=== PATIENT | male | born 1950 | race Caucasian/White ===

== ENCOUNTER 2017-08-27 10:01 | Outpatient (CLI) | payer MEDICARE ==
--- NOTE | 2017-08-27 12:16 | RAD ---
CHEST 1 VIEWS: HISTORY: Cough x many months. COMPARISON: None. FINDINGS: Normal cardiac silhouette. The pulmonary vessels and hilum are normal. Costophrenic angles are logan r. No masses or consolidation. No pneumothorax or osseous abnormalities. Minimal bilateral apical pleural thickening. IMPRESSION: No acute cardiopulmonary process. POS: [facility]
== END 2017-08-27 10:02 | disposition home or self-care (01) ==
LOC: SCSRAD 10:01
PROVIDERS: ATTEND Nurse Practitioner Family
DX: J40 Bronchitis, not specified as acute or chronic (principal)
CPT/HCPCS: 71046

== ENCOUNTER 2018-06-28 06:07 | Outpatient (CLI) | payer MEDICARE ==
[2018-06-28 10:31] LABS: #Basophils 0.1 thou/uL (0.0-0.2); #Eosinphils 0.1 thou/uL (0.0-0.7); #Lymphocytes 2.5 thou/uL (1.20-3.40); #Monocytes 0.6 thou/uL (0.11-0.59); #Neutrophils 3.5 thou/uL (1.40-6.50); %Basophils 1.7 % (0.0-1.0); %Eosinophils 1.6 % (0.0-10.0); %Lymphocytes 37.1 % (21.0-51.0); %Monocytes 8.7 % (0.0-10.0); Mean Corpuscular HGB CONC 32.6 g/dL (32.0-36.0); Mean Corpuscular Volume 89.2 fL (78.0-98.0); Mean Platelet Volume 6.8 fL (7.4-10.4); Platelet Count 300 thou/uL (130-400); RBC Distribution Width 11.5 % (11.5-14.5); Red Blood Cell (RBC) Count 5.17 mill/uL (4.70-6.10); White Blood Cell (WBC) Count 6.8 thou/uL (4.8-10.8)
[2018-06-28 10:50] LABS: ALT (SGPT) 27 U/L (8-55); AST (SGOT) 18 U/L (5-34); Albumin 4.3 g/dL (3.4-4.8); Alkaline Phosphatase 83 U/L (40-150); Anion Gap 14 mmol/L (10-20); BUN (Urea Nitrogen) 10 mg/dL (8.4-25.7); Bilirubin, Total 0.4 mg/dL (0.2-1.2); Calc. Creatinine Clearance 0 mL/min (70-130); Calcium 9.5 mg/dL (7.8-10.44); Carbon Dioxide 24 mmol/L (23-31); Chloride 105 mmol/L (98-107); Estimated GFR-MDRD Greater than 90; Globulin 3.2 g/dL (2.4-3.5); Glucose 107 mg/dL (80-115); Protein, Total 7.5 g/dL (5.8-8.1); Sodium 139 mmol/L (136-145)
== END 2018-06-28 06:08 | disposition home or self-care (01) ==
LOC: LABBT 06:07
PROVIDERS: ATTEND Internal Medicine Cardiovascular Disease
DX: Z01.812 Encounter for preprocedural laboratory examination (principal); R07.9 Chest pain, unspecified
CPT/HCPCS: 80053; 85025

== ENCOUNTER 2018-07-04 05:40 | Day surgery (SDC) | payer MEDICARE ==
[2018-06-28 09:35] VITALS: BMI 25.1
[2018-07-04] MEDS ORDERED: Diazepam 5 MG TAB ONE (06:28)
[2018-07-04] MEDS ORDERED: Midazolam HCl 2 mg/2 ml Vial ONE (06:32)
[2018-07-04] MEDS ORDERED: Fentanyl 100 MCG/2 ML VIAL ONE (06:32)
[2018-07-04] MEDS ORDERED: Iopamidol 370 76% 100 ML VIAL ONE (09:07)
== END 2018-07-04 13:44 | disposition home or self-care (01) ==
LOC: CCL 05:40
PROVIDERS: ATTEND Internal Medicine Cardiovascular Disease
PROC: 4A023N7 Measurement of Cardiac Sampling and Pressure, Left Heart, Percutaneous Approach (ICD-10-PCS; principal; 2018-07-04)
PROC: B2111ZZ Fluoroscopy of Multiple Coronary Arteries using Low Osmolar Contrast (ICD-10-PCS; 2018-07-04)
DX: I25.10 Atherosclerotic heart disease of native coronary artery without angina pectoris (principal); R07.9 Chest pain, unspecified; E78.2 Mixed hyperlipidemia; I73.9 Peripheral vascular disease, unspecified; Z87.891 Personal history of nicotine dependence; Z79.82 Long term (current) use of aspirin; Z79.899 Other long term (current) drug therapy
CPT/HCPCS: 76942; 93458; 99152; C1769; J1644; J2250; J3010; Q9967

== ENCOUNTER 2018-07-09 14:17 | Outpatient (CLI) | payer MEDICARE | END 2018-07-09 14:18 | disposition home or self-care (01) | LOC: LABBT 14:17 | PROVIDERS: ATTEND Thoracic Surgery (Cardiothoracic Vascular Surgery) | DX: Z01.812 Encounter for preprocedural laboratory examination (principal); I25.10 Atherosclerotic heart disease of native coronary artery without angina pectoris | CPT/HCPCS: 80048; 85025; 86850; 86900; 86901 ==

== ENCOUNTER 2018-07-09 14:30 | Inpatient (IN) | payer MEDICARE ==
[2018-07-09 15:24] LABS: #Basophils 0.1 thou/uL (0.0-0.2); #Eosinphils 0.2 thou/uL (0.0-0.7); #Lymphocytes 3.1 thou/uL (1.20-3.40); #Neutrophils 6.6 thou/uL (1.40-6.50); %Basophils 0.9 % (0.0-1.0); %Eosinophils 1.7 % (0.0-10.0); %Lymphocytes 28.1 % (21.0-51.0); %Monocytes 9.4 % (0.0-10.0); %Neutrophils 59.9 % (42.0-75.0); Hemoglobin 15.2 g/dL (14.0-18.0); Mean Corpuscular HGB CONC 33.3 g/dL (32.0-36.0); Mean Corpuscular Volume 90.1 fL (78.0-98.0); Mean Platelet Volume 6.7 fL (7.4-10.4); Platelet Count 293 thou/uL (130-400); RBC Distribution Width 11.5 % (11.5-14.5); Red Blood Cell (RBC) Count 5.08 mill/uL (4.70-6.10); White Blood Cell (WBC) Count 11.1 thou/uL (4.8-10.8)
[2018-07-09 15:42] LABS: Anion Gap 13 mmol/L (10-20); BUN (Urea Nitrogen) 17 mg/dL (8.4-25.7); Calc. Creatinine Clearance 0 mL/min (70-130); Calcium 9.5 mg/dL (7.8-10.44); Carbon Dioxide 23 mmol/L (23-31); Chloride 108 mmol/L (98-107); Estimated GFR-MDRD Greater than 90; Glucose 95 mg/dL (80-115); Potassium 4.3 mmol/L (3.5-5.1); Sodium 140 mmol/L (136-145)
[2018-07-10] MEDS ORDERED: Albumin 5% 0 ML ONE (06:59)
[2018-07-10] MEDS ORDERED: Albumin 5% 500 ML ONE (07:00)
[2018-07-10] MEDS ORDERED: CEFAZOLIN 2 GM/50 ML BAG ONE (08:20)
[2018-07-10] MEDS ORDERED: Sodium Bicarb 50 MEQ/50 ML VIAL ONE (10:38)
[2018-07-10] MEDS ORDERED: Cardioplegic Soln 1,000 ML BAG ONE (10:38)
[2018-07-10] MEDS ORDERED: Potassium Chloride 60 MEQ/30 ML VIAL ONE (10:38)
[2018-07-10] MEDS ORDERED: Dexamethasone 20 MG/5 ML VIAL ONE (10:38)
[2018-07-10] MEDS ORDERED: Vecuronium 10 MG VIAL ONE ×2 (10:38→11:43)
[2018-07-10] MEDS ORDERED: Mannitol 12.5 GM/50 ML ONE (10:38)
[2018-07-10] MEDS ORDERED: Heparin 30,000 units/30 ml VIAL ONE (10:38)
[2018-07-10] MEDS ORDERED: Calcium Chloride 1 GM/10 ML Abboject SYRINGE ONE (10:38)
[2018-07-10] MEDS ORDERED: Magnesium 5 GM/10 ML VIAL ONE (10:38)
[2018-07-10] MEDS ORDERED: Nitroglycerin 50 MG/250 ML BOT ONE (10:38)
[2018-07-10] MEDS ORDERED: Protamine Sulfate 250 MG/25 ML VIAL ONE (10:38)
[2018-07-10] MEDS ORDERED: Thrombin 5000 UNITS/5 ML VIAL ONE (10:38)
[2018-07-10] MEDS ORDERED: Albumin 25% 25 GM/100 ML BOT ONE (10:38)
[2018-07-10] MEDS ORDERED: Aminocaproic Acid 5 GM/20 ML VIAL ONE (10:38)
[2018-07-10] MEDS ORDERED: ePHEDrine/0.9% NaCl/PF SYRINGE 50 mg/10 ml ONE (10:38)
[2018-07-10] MEDS ORDERED: Heparin 5,000 UNITS/ML VIAL ONE (10:38)
[2018-07-10] MEDS ORDERED: PHENYLEPHRINE-NS 100 MCG/ML 10 ML SYRINGE ONE (10:38)
[2018-07-10] MEDS ORDERED: Glycopyrrolate 0.2 MG/ML 5 ML SYRINGE ONE (10:38)
[2018-07-10] MEDS ORDERED: Ketorolac Tromethamine 30 MG/ML VIAL ONE (10:38)
[2018-07-10] MEDS ORDERED: Papaverine 60 MG/2 ML VIAL ONE (10:38)
[2018-07-10] MEDS ORDERED: Ondansetron PF 4 MG/2 ML Vial ONE (10:38)
[2018-07-10] MEDS ORDERED: Fentanyl 100 MCG/2 ML VIAL ONE (11:43)
[2018-07-10] MEDS ORDERED: Dexmedetomidine 200 MCG/2 ML VIAL ONE (11:43)
[2018-07-10] MEDS ORDERED: Midazolam HCl 5 mg/5 ml Vial ONE (11:43)
[2018-07-10] MEDS ORDERED: Midazolam HCl 2 mg/2 ml Vial ONE (11:43)
[2018-07-10] MEDS ORDERED: Heparin 10,000 UNITS/1 ML VIAL 30,000 UNITS in Sodium Chloride 0.9% 1,000 ML IVPB SCH (12:45)
[2018-07-10] MEDS ORDERED: Nitroglycerin 50 MG/250 ML BOT 250 ML IVPB PRN (16:30)
[2018-07-10] MEDS ORDERED: Ondansetron PF 4 MG/2 ML Vial IVP PRN (16:30)
[2018-07-10] MEDS ORDERED: Hetastarch 6% 500 ML 500 ML IVPB PRN (16:30)
[2018-07-10] MEDS ORDERED: Magnesium 2 GM/50 ML 2 GM in Premix Bag 1 BAG IVPB SCH (16:30)
[2018-07-10] MEDS ORDERED: Post-Op Insulin Drip Protocol IVPB ONE (16:30)
[2018-07-10] MEDS ORDERED: Fentanyl 100 MCG/2 ML VIAL SLOW IVP PRN ×2 (16:30)
[2018-07-10] MEDS ORDERED: DOPamine 400 MG/D5W 250 ML 250 ML IVPB PRN (16:30)
[2018-07-10] MEDS ORDERED: Bisacodyl 5 MG TAB PO PRN (16:30)
[2018-07-10] MEDS ORDERED: Bisacodyl 10 MG SUPP PR PRN (16:30)
[2018-07-10] MEDS ORDERED: Potassium Chloride 20 MEQ/100 ML PREMIX BAG IVPB PRN (16:30)
[2018-07-10] MEDS ORDERED: Magnesium 2 GM/NS 0.9% 100 ML 2 GM in Premix Bag 1 BAG IVPB SCH (16:30)
[2018-07-10] MEDS ORDERED: Acetaminophen 325 MG TAB PO PRN (16:30)
[2018-07-10] MEDS ORDERED: Norepinephrine 8 MG/0.9% NS 250 ML IVPB PRN (16:30)
[2018-07-10] MEDS ORDERED: hydrALAZINE 20 MG/ML VIAL SLOW IVP PRN (16:30)
[2018-07-10] MEDS ORDERED: Guaifenesin DM 100-10/5 ML UDCUP PO PRN (16:30)
[2018-07-10] MEDS ORDERED: Mag-Al 1200 mg/1200 mg/30 ML UDCUP PO PRN (16:30)
[2018-07-10] MEDS ORDERED: Morphine 2 MG/ML SYRINGE SLOW IVP PRN (16:39)
[2018-07-10] MEDS ORDERED: Dextrose 50% Abboject 50 ML SYRINGE SLOW IVP PRN (16:47)
[2018-07-10] MEDS ORDERED: HUMULIN R 100 UNITS in Sodium Chloride 0.9% 100 ML IVPB SCH (16:47)
[2018-07-10] MEDS ORDERED: Dextrose 5% in Water 1,000 ML IV PRN (16:47)
[2018-07-10] MEDS ORDERED: Insulin Regular 300 UNITS/3 ML VIAL SC PRN (16:47)
[2018-07-10 17:08] LABS: Actual Bicarbonate (HCO3a) 19.7 mEq/L (22-28); Base Excess (BEa) -4.1 mEq/L (-2.0 to +3.0); CO2 Tension 32.3 mmHg (35.0-45.0); Calcium, Ionized 1.18 mmol/L (1.12-1.30); Carboxyhemoglobin (COHb) 0.7 gm% (0.0-3.0); Hemoglobin (Hb) 11.8 g/dL (14.0-18.0); O2 Tension (PaO2) 94.4 mmHg (> 80.0); Potassium - ABG Lab 4.37 mmol/L (3.70-5.30)
[2018-07-10 17:09] LABS: #Basophils 0.1 thou/uL (0.0-0.2); #Eosinphils 0.1 thou/uL (0.0-0.7); #Lymphocytes 1.3 thou/uL (1.20-3.40); #Monocytes 0.7 thou/uL (0.11-0.59); #Neutrophils 11.6 thou/uL (1.40-6.50); %Basophils 0.5 % (0.0-1.0); %Eosinophils 0.5 % (0.0-10.0); %Lymphocytes 9.5 % (21.0-51.0); %Monocytes 5.1 % (0.0-10.0); %Neutrophils 84.4 % (42.0-75.0); Hemoglobin 12.8 g/dL (14.0-18.0); Mean Corpuscular HGB CONC 33.4 g/dL (32.0-36.0); Mean Corpuscular Hemoglobin 30.4 pg (27.0-31.0); Mean Corpuscular Volume 90.9 fL (78.0-98.0); Mean Platelet Volume 6.7 fL (7.4-10.4); Platelet Count 212 thou/uL (130-400); RBC Distribution Width 11.5 % (11.5-14.5); White Blood Cell (WBC) Count 13.7 thou/uL (4.8-10.8)
[2018-07-10 17:10] LABS: ALV-art Gradient 221.725 (0-20); Puncture Site ALINE
[2018-07-10 17:16] LABS: INR-International Normal Ratio 1.3; PTT 29.4 SEC (22.9-36.1); Prothrombin Time 16.1 SEC (12.0-14.7)
[2018-07-10 17:33] LABS: Anion Gap 15 mmol/L (10-20); BUN (Urea Nitrogen) 13 mg/dL (8.4-25.7); Calc. Creatinine Clearance 108 mL/min (70-130); Calcium 9.1 mg/dL (7.8-10.44); Carbon Dioxide 19 mmol/L (23-31); Chloride 109 mmol/L (98-107); Estimated GFR-MDRD Greater than 90; Glucose 159 mg/dL (80-115); Potassium 4.6 mmol/L (3.5-5.1); Sodium 138 mmol/L (136-145)
[2018-07-10] MEDS: Sodium Chloride 0.9% 1,000 ML IV SCH (17:49)
[2018-07-10] MEDS: CEFAZOLIN 2 GM/50 ML-DEXTROSE 2 GM in Premix Bag 1 BAG IVPB SCH (17:49)
[2018-07-10] MEDS: Ketorolac Tromethamine 30 MG/ML VIAL IVP SCH (17:49)
[2018-07-10] MEDS ORDERED: CEFAZOLIN/Water 2 GM/20 ML SYRINGE SLOW IVP SCH (18:00)
--- NOTE | 2018-07-10 18:50 | RAD ---
RADIOGRAPH CHEST 1 VIEW: Date: 07/10/18 Time: 3:59 p.m. HISTORY: 68-year-old male status post open heart surgery. COMPARISON: 08/27/17. FINDINGS: All of the following are new since the prior study: Sternotomy wires, right subclavian central vascular catheter with distal tip overlying the SVC/right atrial junction, two left paramedial vertically ascending chest tubes, and mildly increased attenuati on at the left lung base. No pulmonary edema. No pneumothorax identified. IMPRESSION: 1. Status post coronary artery bypass graft surgery. 2. Mild atelectasis at left lower lobe. 3. Paramedian chest tubes and right subclavian central line. MARIELY [] POS: [facility]
[2018-07-10] MEDS: HYDROcodone/Acetaminophen 5/325 mg Tablet PO PRN (19:24)
[2018-07-10] MEDS: Atorvastatin Calcium 20 MG TAB PO SCH (20:08)
[2018-07-10] MEDS: Famotidine/PF 20 mg/2ml Vial SLOW IVP SCH (20:08)
[2018-07-10 22:45] LABS: Hemoglobin 12.7 g/dL (14.0-18.0)
[2018-07-11] MEDS: Ketorolac Tromethamine 30 MG/ML VIAL IVP SCH ×4 (00:02→18:25)
[2018-07-11] MEDS: CEFAZOLIN 2 GM/50 ML-DEXTROSE 2 GM in Premix Bag 1 BAG IVPB SCH ×2 (02:13→10:38)
[2018-07-11] MEDS: HYDROcodone/Acetaminophen 5/325 mg Tablet PO PRN ×3 (02:19→19:46)
[2018-07-11 04:48] LABS: #Lymphocytes 1.2 thou/uL (1.20-3.40); #Monocytes 1.2 thou/uL (0.11-0.59); #Neutrophils 8.7 thou/uL (1.40-6.50); %Basophils 0.1 % (0.0-1.0); %Eosinophils 0.1 % (0.0-10.0); %Monocytes 10.4 % (0.0-10.0); %Neutrophils 78.4 % (42.0-75.0); Hemoglobin 10.5 g/dL (14.0-18.0); Mean Corpuscular HGB CONC 33.7 g/dL (32.0-36.0); Mean Corpuscular Hemoglobin 30.9 pg (27.0-31.0); Mean Corpuscular Volume 91.7 fL (78.0-98.0); Platelet Count 212 thou/uL (130-400); RBC Distribution Width 11.4 % (11.5-14.5); Red Blood Cell (RBC) Count 3.41 mill/uL (4.70-6.10); White Blood Cell (WBC) Count 11.1 thou/uL (4.8-10.8)
[2018-07-11 05:13] LABS: Anion Gap 12 mmol/L (10-20); BUN (Urea Nitrogen) 14 mg/dL (8.4-25.7); Calc. Creatinine Clearance 114 mL/min (70-130); Calcium 7.9 mg/dL (7.8-10.44); Carbon Dioxide 20 mmol/L (23-31); Chloride 108 mmol/L (98-107); Estimated GFR-MDRD Greater than 90; Glucose 133 mg/dL (80-115); Potassium 3.8 mmol/L (3.5-5.1); Sodium 136 mmol/L (136-145)
[2018-07-11 06:27] VITALS: BMI 26.2
[2018-07-11] MEDS: Sodium Chloride 0.9% 1,000 ML IV SCH ×2 (07:21→10:53)
[2018-07-11] MEDS: Famotidine/PF 20 mg/2ml Vial SLOW IVP SCH ×2 (07:56→20:50)
[2018-07-11] MEDS ORDERED: Aspirin 325 MG TAB PO SCH (09:00)
--- NOTE | 2018-07-11 09:03 | RAD ---
CHEST 1 VIEW: HISTORY: Status post open heart surgery. COMPARISON: 07/10/2018. FINDINGS: Chest tubes and right central line. Minimal pleural and parenchymal opacity changes in the bases, so mewhat more so on the left side, probably postoperative change with some subsegmental atelectasis. N o significant pneumothorax. IMPRESSION: Pleural and parenchymal changes in both bases more so on the left side probably postoperative change. No significant pneumothorax. Continue short-term followup. POS: [facility]
--- NOTE | 2018-07-11 10:39 | OP ---
DATE OF PROCEDURE: 07/10/2018 PREOPERATIVE DIAGNOSIS: Coronary artery disease. PROCEDURES PERFORMED: Coronary artery bypass graft x4, left internal mammary artery good quality to a 1.25 mm to 1.5 mm LAD, saphenous vein good quality to a 1.25 mm acute marginal, 1.25 mm proximal right PDA, and a 1.5 mm distal obtuse marginal. All targets were rather small and not reoperative candidate based on these targets. The vein was good quality. OCC MED PHYSICIAN: Kobe Shaikh MD. TRANSFUSION: None. DESCRIPTION OF PROCEDURE: After adequate anesthesia had been obtained, the patient was prepped and draped. An endovascular vein harvest of the right leg was performed while median sternotomy was done. Left internal mammary artery was harvested. Common mammary divided after heparinization, treated with intraluminal papaverine and passed behind a small remnant of thymus gland. Aorta and right atrium were cannulated and cardiopulmonary bypass was begun. The vessels were inspected for grafting. A liter of cold blood cardioplegia was given through the aortic root after cross-clamping. Distal anastomosis completed. Long period of time was spent with the right coronary system, trying to find a suitable target as the posterior lateral branches were too small for the main right coronary artery and the proximal posterior lateral to calcify and the PDA was chosen, although was marginal in size. Following completion of the distal anastomosis, the cross-clamp was removed and the partial occluding clamp placed in the obtuse marginal and PDA. Vein grafts were placed on the aortic root. A partial occluding clamp was removed and vein grafts were marked with rings on the aorta. The acute marginal graft was anastomosed to the vein graft to the PDA about 2.5 cm from the aortic root. The patient was then weaned from cardiopulmonary bypass after inspection of proximal and distal anastomosis. Cannula was removed and protamine was given systemically and the aortic cannulation site was secured with a 4-0 Prolene suture. Following this, mediastinal and left pleural drains were placed and the sternum was then reapproximated with #7 interrupted wire using vancomycin paste on the sternal edges, platelet rich blood and platelet poor plasma. Subcutaneous tissue and skin were closed in layers. Job ID: [id number]
--- NOTE | 2018-07-11 13:16 | EKG ---
Test Reason : Blood Pressure : / mmHG Vent. Rate : 080 BPM Atrial Rate : 080 BPM P-R Int : 154 ms QRS Dur : 090 ms QT Int : 386 ms P-R-T Axes : 063 021 052 degrees QTc Int : 445 ms Normal sinus rhythm Nonspecific ST abnormality Abnormal ECG No previous ECGs available Confirmed by DR. Joleen BANUELOS MD ([id number]) on 07/11/2018 1:16:31 PM Referred By: PETEY Confirmed By:DR. Joleen BANUELOS MD
[2018-07-11 14:42] LABS: Actual Bicarbonate (HCO3a) 23.7 mEq/L (22-28); Analyzer IN Cardio OR; Base Excess (BEa) -0.5 mEq/L (-2.0 to +3.0); CO2 Tension 37.5 mmHg (35.0-45.0); Calcium, Ionized 1.11 mmol/L (1.12-1.30); Carboxyhemoglobin (COHb) 0.6 gm% (0.0-3.0); Hemoglobin (Hb) 14.2 g/dL (14.0-18.0); Potassium - ABG Lab 4.08 mmol/L (3.70-5.30); pH, Arterial 7.42 (7.35-7.45)
[2018-07-11 14:43] LABS: Analyzer IN Cardio OR; Base Excess (BEa) -1.6 mEq/L (-2.0 to +3.0); CO2 Tension 38.3 mmHg (35.0-45.0); Calcium, Ionized 0.97 mmol/L (1.12-1.30); Carboxyhemoglobin (COHb) 0.3 gm% (0.0-3.0); Potassium - ABG Lab 4.79 mmol/L (3.70-5.30)
[2018-07-11 14:43] LABS: Actual Bicarbonate (HCO3a) 23.2 mEq/L (22-28); Analyzer IN Cardio OR; Base Excess (BEa) -2.6 mEq/L (-2.0 to +3.0); CO2 Tension 44.1 mmHg (35.0-45.0); Calcium, Ionized 1.27 mmol/L (1.12-1.30); Carboxyhemoglobin (COHb) 0.5 gm% (0.0-3.0); Hemoglobin (Hb) 11.1 g/dL (14.0-18.0); Potassium - ABG Lab 4.88 mmol/L (3.70-5.30); pH, Arterial 7.34 (7.35-7.45)
[2018-07-11 14:43] LABS: Actual Bicarbonate (HCO3a) 21.5 mEq/L (22-28); Analyzer IN Cardio OR; Base Excess (BEa) -3.8 mEq/L (-2.0 to +3.0); CO2 Tension 39.9 mmHg (35.0-45.0); Calcium, Ionized 1.07 mmol/L (1.12-1.30); Carboxyhemoglobin (COHb) 0.4 gm% (0.0-3.0); Hemoglobin (Hb) 13.3 g/dL (14.0-18.0); O2 Tension (PaO2) 271.6 mmHg (> 80.0); Potassium - ABG Lab 4.12 mmol/L (3.70-5.30); pH, Arterial 7.35 (7.35-7.45)
[2018-07-11 14:44] LABS: Actual Bicarbonate (HCO3a) 18.5 mEq/L (22-28); Analyzer IN Cardio OR; Base Excess (BEa) -5.9 mEq/L (-2.0 to +3.0); CO2 Tension 33.1 mmHg (35.0-45.0); Calcium, Ionized 1.23 mmol/L (1.12-1.30); Carboxyhemoglobin (COHb) 0.6 gm% (0.0-3.0); Hemoglobin (Hb) 12.4 g/dL (14.0-18.0); O2 Tension (PaO2) 393.5 mmHg (> 80.0); Puncture Site ALINE; pH, Arterial 7.37 (7.35-7.45)
[2018-07-11 14:45] LABS: Puncture Site ALINE
[2018-07-11 14:46] LABS: O2 Tension (PaO2) 517.4 mmHg (> 80.0); Puncture Site ALINE
[2018-07-11 14:47] LABS: Puncture Site ALINE
[2018-07-11 14:47] LABS: Puncture Site ALINE
[2018-07-11] MEDS: BEER 1 CAN PO SCH (18:22)
[2018-07-11] MEDS: Atorvastatin Calcium 20 MG TAB PO SCH (20:51)
[2018-07-11] MEDS ORDERED: Metoprolol Tartrate 25 MG TAB PO SCH (21:00)
[2018-07-12] MEDS: Ketorolac Tromethamine 30 MG/ML VIAL IVP SCH ×2 (00:09→05:05)
[2018-07-12] MEDS: HYDROcodone/Acetaminophen 5/325 mg Tablet PO PRN ×3 (05:04→18:21)
[2018-07-12 05:09] LABS: #Basophils 0.1 thou/uL (0.0-0.2); #Lymphocytes 2.1 thou/uL (1.20-3.40); #Monocytes 1.3 thou/uL (0.11-0.59); #Neutrophils 6.2 thou/uL (1.40-6.50); %Basophils 0.6 % (0.0-1.0); %Eosinophils 0.3 % (0.0-10.0); %Monocytes 13.2 % (0.0-10.0); %Neutrophils 63.9 % (42.0-75.0); Hemoglobin 10.1 g/dL (14.0-18.0); Mean Corpuscular HGB CONC 33.1 g/dL (32.0-36.0); Mean Corpuscular Hemoglobin 30.6 pg (27.0-31.0); Mean Corpuscular Volume 92.4 fL (78.0-98.0); Mean Platelet Volume 6.8 fL (7.4-10.4); Platelet Count 170 thou/uL (130-400); RBC Distribution Width 11.5 % (11.5-14.5); Red Blood Cell (RBC) Count 3.32 mill/uL (4.70-6.10); White Blood Cell (WBC) Count 9.7 thou/uL (4.8-10.8)
[2018-07-12 05:23] LABS: Anion Gap 9 mmol/L (10-20); BUN (Urea Nitrogen) 12 mg/dL (8.4-25.7); Calc. Creatinine Clearance 120 mL/min (70-130); Calcium 8.4 mg/dL (7.8-10.44); Carbon Dioxide 25 mmol/L (23-31); Chloride 107 mmol/L (98-107); Estimated GFR-MDRD Greater than 90; Glucose 109 mg/dL (80-115); Potassium 4.2 mmol/L (3.5-5.1); Sodium 137 mmol/L (136-145)
[2018-07-12] MEDS ORDERED: Fentanyl 100 MCG/2 ML VIAL SLOW IVP PRN (07:45)
[2018-07-12] MEDS ORDERED: Bisacodyl 10 MG SUPP PR PRN (07:45)
[2018-07-12] MEDS ORDERED: Ondansetron PF 4 MG/2 ML Vial IVP PRN (07:45)
[2018-07-12] MEDS ORDERED: Mineral Oil ENEMA PR PRN (07:45)
[2018-07-12] MEDS ORDERED: Guaifenesin DM 100-10/5 ML UDCUP PO PRN (07:45)
[2018-07-12] MEDS ORDERED: Nitroglycerin 0.4 MG TAB (25 Tab Bottle) SL PRN (07:45)
[2018-07-12] MEDS ORDERED: Mag-Al 1200 mg/1200 mg/30 ML UDCUP PO PRN (07:45)
--- NOTE | 2018-07-12 08:46 | RAD ---
CHEST 1 VIEW: Date: 07/12/18 HISTORY: Heart surgery. Follow-up. COMPARISON: 07/11/18. FINDINGS: Cardiac silhouette is magnified by projection. Pulmonary vasculature remains upper limits of normal. Mediastinum is midline with postoperative changes. Lines and tubes appear unchanged in position. Atel ectasis at the left base is unchanged. No evidence of pneumothorax. IMPRESSION: Stable postoperative appearance of the chest. POS: [facility]
[2018-07-12] MEDS: Furosemide 40 MG TAB PO SCH (09:40)
[2018-07-12] MEDS: Metoprolol Tartrate 25 MG TAB PO SCH ×2 (09:40→21:18)
[2018-07-12] MEDS: Aspirin 325 mg Enteric Coated Tablet PO SCH (09:41)
[2018-07-12] MEDS: Famotidine 20 MG TAB PO SCH ×2 (09:41→21:18)
[2018-07-12] MEDS: Potassium Chloride 10 MEQ TAB PO SCH (09:42)
[2018-07-12] MEDS: BEER 1 CAN PO SCH ×3 (09:44→21:01)
[2018-07-12] MEDS: Atorvastatin Calcium 20 MG TAB PO SCH (21:17)
[2018-07-13] MEDS: HYDROcodone/Acetaminophen 5/325 mg Tablet PO PRN ×5 (02:35→23:48)
[2018-07-13] MEDS: Aspirin 325 mg Enteric Coated Tablet PO SCH (08:43)
[2018-07-13] MEDS: Potassium Chloride 10 MEQ TAB PO SCH (08:43)
[2018-07-13] MEDS: Famotidine 20 MG TAB PO SCH ×2 (08:43→21:07)
[2018-07-13] MEDS: Furosemide 40 MG TAB PO SCH (08:44)
[2018-07-13] MEDS: Metoprolol Tartrate 25 MG TAB PO SCH ×2 (08:44→21:07)
[2018-07-13] MEDS: BEER 1 CAN PO SCH ×3 (08:56→16:52)
[2018-07-13] MEDS ORDERED: Atorvastatin Calcium 20 MG TAB PO SCH (10:38)
[2018-07-13] MEDS ORDERED: Metoprolol Tartrate 25 MG TAB PO SCH ×3 (10:42→11:15)
[2018-07-13] MEDS: Bisacodyl 5 MG TAB PO PRN (16:05)
[2018-07-13] MEDS: Atorvastatin Calcium 20 MG TAB PO SCH (21:06)
[2018-07-13] MEDS: Enoxaparin Sodium 40 MG/0.4 ML SYRINGE SC SCH (21:06)
[2018-07-14] MEDS: HYDROcodone/Acetaminophen 5/325 mg Tablet PO PRN ×4 (03:53→21:42)
[2018-07-14] MEDS: Acetaminophen 325 MG TAB PO PRN ×2 (06:44→19:25)
[2018-07-14] MEDS: BEER 1 CAN PO SCH ×3 (09:56→17:16)
[2018-07-14] MEDS: Aspirin 325 mg Enteric Coated Tablet PO SCH (09:57)
[2018-07-14] MEDS: Metoprolol Tartrate 25 MG TAB PO SCH ×2 (09:57→21:34)
[2018-07-14] MEDS: Potassium Chloride 10 MEQ TAB PO SCH (09:57)
[2018-07-14] MEDS: Famotidine 20 MG TAB PO SCH ×2 (09:57→21:34)
[2018-07-14] MEDS: Furosemide 40 MG TAB PO SCH (09:57)
[2018-07-14] MEDS: Enoxaparin Sodium 40 MG/0.4 ML SYRINGE SC SCH (21:34)
[2018-07-14] MEDS: Atorvastatin Calcium 20 MG TAB PO SCH (21:35)
[2018-07-15] MEDS: Bisacodyl 5 MG TAB PO PRN (05:15)
[2018-07-15] MEDS: HYDROcodone/Acetaminophen 5/325 mg Tablet PO PRN ×3 (05:19→20:47)
[2018-07-15] MEDS ORDERED: Magnesium Citrate 300 ML BOT PO SCH (06:45)
[2018-07-15] MEDS: BEER 1 CAN PO SCH ×3 (09:44→16:25)
[2018-07-15] MEDS: Polyethylene Glycol 3350 17 GM Packet PO SCH (09:46)
[2018-07-15] MEDS: Potassium Chloride 10 MEQ TAB PO SCH (09:48)
[2018-07-15] MEDS: Famotidine 20 MG TAB PO SCH ×2 (09:49→20:46)
[2018-07-15] MEDS: Furosemide 40 MG TAB PO SCH (09:49)
[2018-07-15] MEDS: Metoprolol Tartrate 25 MG TAB PO SCH ×2 (09:49→20:46)
[2018-07-15] MEDS: Aspirin 325 mg Enteric Coated Tablet PO SCH (09:49)
[2018-07-15] MEDS: Enoxaparin Sodium 40 MG/0.4 ML SYRINGE SC SCH (20:44)
[2018-07-15] MEDS: Atorvastatin Calcium 20 MG TAB PO SCH (20:45)
[2018-07-16] MEDS: HYDROcodone/Acetaminophen 5/325 mg Tablet PO PRN (05:40)
[2018-07-16] MEDS ORDERED: Metoprolol Tartrate 25 MG TAB PO SCH (06:27)
[2018-07-16] MEDS: BEER 1 CAN PO SCH (08:48)
[2018-07-16] MEDS: Potassium Chloride 10 MEQ TAB PO SCH (08:54)
[2018-07-16] MEDS: Furosemide 40 MG TAB PO SCH (08:54)
[2018-07-16] MEDS: Famotidine 20 MG TAB PO SCH (08:54)
[2018-07-16] MEDS: Polyethylene Glycol 3350 17 GM Packet PO SCH (08:55)
[2018-07-16] MEDS: Aspirin 325 mg Enteric Coated Tablet PO SCH (08:55)
[2018-07-16 09:00] VITALS: BP 118/72; TEMP 97.8
--- NOTE | 2018-07-17 04:17 | DIS ---
DATE OF ADMISSION: 07/10/2018 DATE OF DISCHARGE: 07/16/2018 HOSPITAL COURSE: This is a 68-year-old gentleman, electively admitted on 07/10 for coronary bypass grafting. He underwent bypass grafts, left internal mammary artery to an LAD, saphenous vein graft to an acute marginal, proximal PDA and a distal obtuse marginal. All targets were rather small and not a reoperative candidate based on these targets. The vein was good quality. His postoperative course was rather uneventful. He did have constipation which was resolved. He was ambulating with his leg prosthesis. His incisions were doing well. Discharge weight was recorded as 177 pounds and this compared with office weight, fully dressed of 188. He will be discharged home today on aspirin 1 a day, atorvastatin 40 a day, metoprolol 50 b.i.d. and his resting heart rate is about 100. His blood pressures has been 120-130. He will also receive a prescription for MiraLAX and for [place]. He is to resume his other [id number] medications. Discharge and followup instructions have been given. Job ID: [id number]
== END 2018-07-16 10:27 | disposition home or self-care (01) | DRG 236 ==
LOC: SURG A 07-10 07:58 → CCU 07-10 17:20 → 2NO 07-12 06:45
PROVIDERS: ADMIT Thoracic Surgery (Cardiothoracic Vascular Surgery); ATTEND Thoracic Surgery (Cardiothoracic Vascular Surgery)
PROC: 02100Z9 Bypass Coronary Artery, One Artery from Left Internal Mammary, Open Approach (ICD-10-PCS; principal; 2018-07-10)
PROC: 021209W Bypass Coronary Artery, Three Arteries from Aorta with Autologous Venous Tissue, Open Approach (ICD-10-PCS; 2018-07-10)
PROC: 06BP4ZZ Excision of Right Saphenous Vein, Percutaneous Endoscopic Approach (ICD-10-PCS; 2018-07-10)
PROC: 5A1221Z Performance of Cardiac Output, Continuous (ICD-10-PCS; 2018-07-10)
DX: I25.118 Atherosclerotic heart disease of native coronary artery with other forms of angina pectoris (principal); E78.2 Mixed hyperlipidemia; K59.00 Constipation, unspecified; Z87.891 Personal history of nicotine dependence; Z79.82 Long term (current) use of aspirin; Z79.899 Other long term (current) drug therapy; Z89.512 Acquired absence of left leg below knee
CPT/HCPCS: 36416; 36430; 71045; 80048; 82805; 85025; 85610; 85730; 86850; 86900; 86901; 93005; 93010; 93798; 94150; 94760; J1100; J1642; J1644; J1650; J1815; J1885; J2150; J2250; J2405; J2440; J2720; J3010; J3370; J3475; J3480; J7050; P9045; P9047; S0017; S0028

== ENCOUNTER 2018-07-19 10:40 | Outpatient (CLI) | payer MEDICARE ==
--- NOTE | 2018-07-19 11:12 | RAD ---
PA AND LATERAL VIEWS CHEST: Date: 07/19/18 HISTORY: Shortness of breath. FINDINGS/IMPRESSION: Comparison made with exam of 07/12/18. Changes of median sternotomy are again seen. The heart size is borderline. There is a small left pleu ral effusion. No lobar consolidation or pneumothoraces are seen. POS: [facility]
== END 2018-07-19 10:41 | disposition home or self-care (01) ==
LOC: BICRAD 10:40
PROVIDERS: ATTEND Physician Assistant
DX: R06.02 Shortness of breath (principal); J90 Pleural effusion, not elsewhere classified; Z98.890 Other specified postprocedural states; E78.2 Mixed hyperlipidemia; R07.9 Chest pain, unspecified
CPT/HCPCS: 36415; 71046; 80053; 83880; 84443; 85025; 85379

== ENCOUNTER 2018-07-24 13:28 | Outpatient (CLI) | payer MEDICARE ==
--- NOTE | 2018-07-24 14:00 | RAD ---
TWO VIEWS CHEST: Comparison: 07-19-18 History: Dyspnea. FINDINGS: Two views of the chest shows the patient to be status post CABG. There appears to be a small left ple ural effusion. No consolidation or mass are seen. IMPRESSION: Stable small left pleural effusion. POS: [facility]
== END 2018-07-24 13:29 | disposition home or self-care (01) ==
LOC: RAD 13:28
PROVIDERS: ATTEND Thoracic Surgery (Cardiothoracic Vascular Surgery)
DX: I25.118 Atherosclerotic heart disease of native coronary artery with other forms of angina pectoris (principal); J90 Pleural effusion, not elsewhere classified
CPT/HCPCS: 71046

== ENCOUNTER 2019-05-26 10:07 | Outpatient (CLI) | payer MEDICARE ==
--- NOTE | 2019-05-26 10:50 | RAD ---
XR Knee Rt 3 View HISTORY: Right knee pain FINDINGS: No fracture or dislocation is identified. Mild-moderate degenerative changes are present
[2019-05-26 15:14] LABS: Magnesium 2.2 mg/dL (1.6-2.6); Phosphorus 3.4 mg/dL (2.3-4.7)
== END 2019-05-26 10:08 | disposition home or self-care (01) ==
LOC: SCSRAD 10:07
PROVIDERS: ATTEND Family Medicine
DX: M25.561 Pain in right knee (principal); M17.11 Unilateral primary osteoarthritis, right knee; R25.2 Cramp and spasm
CPT/HCPCS: 36415; 82306; 83735; 84100

== ENCOUNTER 2021-02-24 13:39 | Outpatient (CLI) | payer MEDICARE | END 2021-02-24 13:40 | disposition home or self-care (01) | LOC: SCSRAD 13:39 | PROVIDERS: ATTEND Nurse Practitioner Family | DX: M25.562 Pain in left knee (principal) ==

== ENCOUNTER 2021-07-29 07:53 | Outpatient (CLI) | payer MEDICARE | END 2021-07-29 07:54 | disposition home or self-care (01) | LOC: SCSRAD 07:53 | PROVIDERS: ATTEND Family Medicine | DX: M25.532 Pain in left wrist (principal); S62.102A Fracture of unspecified carpal bone, left wrist, initial encounter for closed fracture ==